=== PATIENT | male | born 1980 | race African-American/Black ===

== ENCOUNTER 2020-11-17 10:07 | Inpatient (IN) | payer OTHER ==
[2020-11-17 10:28] VITALS: BMI 23.2
[2020-11-17] MEDS ORDERED: ACETAMINOPHEN 325 MG TABLET (FP) PO PRN (14:05)
[2020-11-17] MEDS ORDERED: METHOCARBAMOL 500 MG TABLET PO PRN (14:05)
[2020-11-17] MEDS ORDERED: chlordiazePOXIDE HCL 25 MG CAPSULE PO PRN (14:05)
[2020-11-17] MEDS ORDERED: MENTHOL/PHENOL 1 EACH UD MM PRN (14:05)
[2020-11-17] MEDS ORDERED: MAG HYDROX/AL HYDROX/SIMETH 30 ML UNIT-DOSE CUP PO PRN (14:05)
[2020-11-17] MEDS ORDERED: MAGNESIUM CITRATE 300 ML BOTTLE PO PRN (14:05)
[2020-11-17] MEDS ORDERED: BISMUTH SUBSALICYLATE 524 MG/30 ML UD PO PRN (14:05)
[2020-11-17] MEDS ORDERED: IBUPROFEN 400 MG TABLET (FP) PO PRN (14:05)
[2020-11-17] MEDS ORDERED: ONDANSETRON *ODT* 4 MG TABLET SL PRN (14:05)
[2020-11-17] MEDS ORDERED: MAGNESIUM HYDROX 2400MG/30ML ORAL SUSPENSION 30 ML CUP PO PRN (14:05)
[2020-11-17] MEDS: chlordiazePOXIDE HCL 25 MG CAPSULE PO SCH ×2 (18:45→22:18)
[2020-11-17] MEDS: hydrOXYzine PAMOATE 25 MG CAPSULE (FP) PO SCH ×2 (18:47→22:18)
[2020-11-17] MEDS: THIAMINE HCL 100 MG TABLET (FP) PO SCH (22:18)
[2020-11-17] MEDS: MELATONIN 5 MG TABLETS PO SCH (22:18)
[2020-11-18] MEDS: hydrOXYzine PAMOATE 25 MG CAPSULE (FP) PO SCH ×5 (05:44→23:30)
[2020-11-18] MEDS: chlordiazePOXIDE HCL 25 MG CAPSULE PO SCH ×4 (05:45→23:21)
[2020-11-18] MEDS ORDERED: PRENATAL VITAMINS W/ FOLIC ACID TABLET (FP) PO SCH (10:00)
[2020-11-18] MEDS: ACETAMINOPHEN 325 MG TABLET (FP) PO PRN ×2 (10:32→17:56)
[2020-11-18 12:12] LABS: POTASSIUM 3.8 mmol/L (3.5-5.1)
[2020-11-18 12:14] LABS: HEMATOCRIT 44.3 % (35.4-49); HEMOGLOBIN 14.4 GM/dL (11.7-16.9); MCH 27.2 pg (25.7-33.7); MCHC 32.5 g/dl (32.0-35.9); MEAN CELL VOLUME 83.8 fl (80-96); MEAN PLT VOLUME 8.3 fl (7.5-11.1); PLATELET COUNT 297 K/MM3 (134-434); RBC 5.28 M/mm3 (4.00-5.60); RDW 13.9 % (11.9-15.9); WHITE BLOOD COUNT 6.4 K/mm3 (4.0-10.0)
[2020-11-18 12:16] LABS: CALCIUM 8.6 mg/dL (8.5-10.1)
[2020-11-18 12:17] LABS: ALBUMIN 3.6 g/dl (3.4-5.0); BLOOD UREA NITROGEN 10.6 mg/dL (7-18)
[2020-11-18 12:20] LABS: CREATININE 0.9 mg/dL (0.55-1.3)
[2020-11-18 12:21] LABS: BILIRUBIN,TOTAL 0.4 mg/dL (0.2-1); TOT PROT 6.2 g/dl (6.4-8.2)
[2020-11-18] MEDS: THIAMINE HCL 100 MG TABLET (FP) PO SCH (23:23)
[2020-11-18] MEDS: MELATONIN 5 MG TABLETS PO SCH (23:24)
[2020-11-19] MEDS ORDERED: chlordiazePOXIDE HCL 25 MG CAPSULE PO SCH (05:00)
[2020-11-19] MEDS: hydrOXYzine PAMOATE 25 MG CAPSULE (FP) PO SCH (05:52)
[2020-11-19 06:26] VITALS: BP 104/66; PULSE 68; TEMP 98.1
[2020-11-20] MEDS ORDERED: chlordiazePOXIDE HCL 10 MG CAPSULE PO PRN
[2020-11-20] MEDS ORDERED: chlordiazePOXIDE HCL 10 MG CAPSULE PO SCH (05:00)
[2020-11-21] MEDS ORDERED: chlordiazePOXIDE HCL 10 MG CAPSULE PO SCH (05:00)
[2020-11-22] MEDS ORDERED: chlordiazePOXIDE HCL 10 MG CAPSULE PO ONE (05:00)
== END 2020-11-19 08:06 | disposition left against medical advice (07) | DRG 770 ==
LOC: YASAS 10:07 → Y6N 15:07
PROVIDERS: ADMIT Allergy & Immunology; ATTEND Allergy & Immunology
PROC: HZ2ZZZZ Detoxification Services for Substance Abuse Treatment (ICD-10-PCS; principal; 2020-11-17)
DX: F10.230 Alcohol dependence with withdrawal, uncomplicated (principal); F12.20 Cannabis dependence, uncomplicated; Z88.1 Allergy status to other antibiotic agents
CPT/HCPCS: 36415; 80053; 85027; 86780; 87389; C9803; U0003

== ENCOUNTER 2021-04-02 14:08 | Inpatient (IN) | payer OTHER ==
[2021-04-02 15:07] VITALS: BMI 22.6
[2021-04-02] MEDS ORDERED: NICOTINE POLACRILEX 2 MG GUM BUC PRN (17:56)
[2021-04-02] MEDS ORDERED: diazePAM 5 MG TABLET PO PRN (17:56)
[2021-04-02] MEDS ORDERED: ACETAMINOPHEN 325 MG TABLET (FP) PO PRN ×2 (17:56)
[2021-04-02] MEDS ORDERED: MAGNESIUM HYDROX 2400MG/30ML ORAL SUSPENSION 30 ML CUP PO PRN (17:56)
[2021-04-02] MEDS ORDERED: BISMUTH SUBSALICYLATE 524 MG/30 ML PO PRN (17:56)
[2021-04-02] MEDS ORDERED: MENTHOL/PHENOL 1 EACH UD MM PRN (17:56)
[2021-04-02] MEDS ORDERED: ONDANSETRON *ODT* 4 MG TABLET SL PRN (17:56)
[2021-04-02] MEDS ORDERED: MAG HYDROX/AL HYDROX/SIMETH 30 ML UNIT-DOSE CUP PO PRN (17:56)
[2021-04-02] MEDS ORDERED: MAGNESIUM CITRATE 300 ML BOTTLE PO PRN (17:56)
[2021-04-02] MEDS ORDERED: METHOCARBAMOL 500 MG TABLET PO PRN (17:56)
[2021-04-02] MEDS ORDERED: IBUPROFEN 400 MG TABLET (FP) PO PRN (17:56)
[2021-04-02] MEDS ORDERED: ALBUTEROL SO4 HFA INHALER IH PRN (17:59)
[2021-04-02] MEDS: hydrOXYzine PAMOATE 25 MG CAPSULE (FP) PO SCH ×2 (18:36→22:54)
[2021-04-02] MEDS: MELATONIN 5 MG TABLETS PO SCH (22:54)
[2021-04-02] MEDS: THIAMINE HCL 100 MG TABLET (FP) PO SCH (22:54)
[2021-04-02] MEDS: diazePAM 5 MG TABLET PO SCH (22:56)
[2021-04-03] MEDS: hydrOXYzine PAMOATE 25 MG CAPSULE (FP) PO SCH ×5 (06:23→22:32)
[2021-04-03] MEDS: diazePAM 5 MG TABLET PO SCH ×4 (06:24→22:32)
[2021-04-03 09:59] LABS: HEMATOCRIT 42.1 % (35.4-49); HEMOGLOBIN 14.2 GM/dL (11.7-16.9); MCH 27.7 pg (25.7-33.7); MCHC 33.8 g/dl (32.0-35.9); MEAN CELL VOLUME 82.1 fl (80-96); PLATELET COUNT 329 K/MM3 (134-434); RBC 5.12 M/mm3 (4.00-5.60); WHITE BLOOD COUNT 8.8 K/mm3 (4.0-10.0)
[2021-04-03 10:14] LABS: CALCIUM 9.4 mg/dL (8.5-10.1)
[2021-04-03 10:15] LABS: ALBUMIN 4.3 g/dl (3.4-5.0)
[2021-04-03 10:17] LABS: CREATININE 0.9 mg/dL (0.55-1.3)
[2021-04-03] MEDS: PRENATAL VITAMINS W/ FOLIC ACID TABLET (FP) PO SCH (10:17)
[2021-04-03 10:19] LABS: BILIRUBIN,TOTAL 0.9 mg/dL (0.2-1); TOT PROT 7.2 g/dl (6.4-8.2)
[2021-04-03 10:27] LABS: BLOOD UREA NITROGEN 11.3 mg/dL (7-18)
[2021-04-03] MEDS: THIAMINE HCL 100 MG TABLET (FP) PO SCH (22:32)
[2021-04-03] MEDS: MELATONIN 5 MG TABLETS PO SCH (22:33)
[2021-04-04] MEDS: diazePAM 5 MG TABLET PO SCH ×2 (06:10→14:11)
[2021-04-04] MEDS: hydrOXYzine PAMOATE 25 MG CAPSULE (FP) PO SCH ×3 (06:10→14:20)
[2021-04-04] MEDS ORDERED: COLLOIDAL OATMEAL 1 BAR EACH TP PRN (08:23)
[2021-04-04] MEDS: PRENATAL VITAMINS W/ FOLIC ACID TABLET (FP) PO SCH (10:46)
[2021-04-04 13:17] VITALS: BP 115/66; PULSE 83; TEMP 96.9
[2021-04-05] MEDS ORDERED: diazePAM 5 MG TABLET PO SCH (06:00)
[2021-04-06] MEDS ORDERED: diazePAM 5 MG TABLET PO ONE (06:00)
== END 2021-04-04 17:03 | disposition left against medical advice (07) | DRG 770 ==
LOC: YASAS 14:08 → Y6N 16:08
PROVIDERS: ADMIT Allergy & Immunology; ATTEND Allergy & Immunology
PROC: HZ2ZZZZ Detoxification Services for Substance Abuse Treatment (ICD-10-PCS; principal; 2021-04-02)
DX: F10.230 Alcohol dependence with withdrawal, uncomplicated (principal); F12.20 Cannabis dependence, uncomplicated; F17.210 Nicotine dependence, cigarettes, uncomplicated; J45.909 Unspecified asthma, uncomplicated; K21.9 Gastro-esophageal reflux disease without esophagitis; Z88.1 Allergy status to other antibiotic agents
CPT/HCPCS: 36415; 80053; 85027; 86780; C9803; U0003; U0005

== ENCOUNTER 2023-02-15 13:24 | Inpatient (IN) | payer OTHER ==
[2023-02-15 14:24] VITALS: BMI 22.1
[2023-02-15] MEDS ORDERED: ALBUTEROL SO4 HFA INHALER IH PRN (17:15)
[2023-02-15] MEDS ORDERED: POLYETHYLENE GLYCOL (HEALTHYLAX) 3350 17 GM PACKET PO PRN (17:30)
[2023-02-15] MEDS ORDERED: MAG HYDROX/AL HYDROX/SIMETH 30 ML UNIT-DOSE CUP PO PRN (17:30)
[2023-02-15] MEDS ORDERED: P-EPHED 60MG/TRIPROLIDI 2.5MG TABLET PO PRN (17:30)
[2023-02-15] MEDS ORDERED: NICOTINE POLACRILEX 2 MG GUM BUC PRN (17:30)
[2023-02-15] MEDS ORDERED: ONDANSETRON *ODT* 4 MG TABLET SL PRN (17:30)
[2023-02-15] MEDS ORDERED: BENZONATATE 200 MG CAPSULE PO PRN (17:30)
[2023-02-15] MEDS ORDERED: METHOCARBAMOL 500 MG TABLET PO PRN (17:30)
[2023-02-15] MEDS ORDERED: guaiFENesin 600 MG TABLET.ER (FP) PO PRN (17:30)
[2023-02-15] MEDS ORDERED: IBUPROFEN 600 MG TABLET (FP) PO PRN (17:30)
[2023-02-15] MEDS ORDERED: MAGNESIUM HYDROX 2400MG/30ML ORAL SUSPENSION 30 ML CUP PO PRN (17:30)
[2023-02-15] MEDS ORDERED: BENZOCAINE/MENTHOL (CHLORASEPTIC ) LOZENGE MM PRN (17:30)
[2023-02-15] MEDS ORDERED: LOPERAMIDE HCL 2 MG CAPSULE PO PRN (17:30)
[2023-02-15] MEDS ORDERED: hydrOXYzine PAMOATE 25 MG CAPSULE (FP) PO PRN (17:30)
[2023-02-15] MEDS ORDERED: IBUPROFEN 400 MG TABLET (FP) PO PRN (17:30)
[2023-02-15] MEDS ORDERED: DICYCLOMINE HCL 10 MG CAPSULE PO PRN (17:30)
[2023-02-15] MEDS ORDERED: ACETAMINOPHEN 325 MG TABLET (FP) PO PRN (17:30)
[2023-02-15] MEDS ORDERED: BISMUTH SUBSALICYLATE 524 MG/30 ML PO PRN (17:30)
[2023-02-15] MEDS ORDERED: MELATONIN 5 MG TABLETS PO PRN (17:30)
[2023-02-15] MEDS ORDERED: diazePAM 5 MG TABLET PO PRN (17:32)
[2023-02-15] MEDS ORDERED: THIAMINE HCL 100 MG TABLET (FP) PO SCH (22:00)
[2023-02-15] MEDS: diazePAM 5 MG TABLET PO SCH (22:24)
[2023-02-16] MEDS: diazePAM 5 MG TABLET PO SCH ×2 (05:35→10:14)
[2023-02-16 09:00] VITALS: RESP 16
[2023-02-16] MEDS ORDERED: PRENATAL VITAMINS W/ FOLIC ACID TABLET (FP) PO SCH (10:00)
[2023-02-16 11:46] LABS: CALCIUM 8.9 mg/dL (8.5-10.1)
[2023-02-16 11:47] LABS: ALBUMIN 3.8 g/dl (3.4-5.0); BLOOD UREA NITROGEN 9.8 mg/dL (7-18)
[2023-02-16 11:49] LABS: HEMATOCRIT 44.6 % (35.4-49); HEMOGLOBIN 15.1 GM/dL (11.7-16.9); MCHC 33.9 g/dl (32.0-35.9); MEAN CELL VOLUME 82.6 fl (80-96); MEAN PLT VOLUME 7.9 fl (7.5-11.1); PLATELET COUNT 336 10^3/uL (134-434); RDW 14.7 % (11.9-15.9); WHITE BLOOD COUNT 9.4 K/mm3 (4.0-10.0)
[2023-02-16 11:50] LABS: CREATININE 0.9 mg/dL (0.55-1.3)
[2023-02-16 11:51] LABS: BILIRUBIN,TOTAL 1.4 mg/dL (0.2-1)
[2023-02-16 11:52] LABS: TOT PROT 6.9 g/dl (6.4-8.2)
[2023-02-16 12:49] VITALS: BP 139/79; PULSE 83; TEMP 98
[2023-02-17] MEDS ORDERED: diazePAM 5 MG TABLET PO SCH (06:00)
[2023-02-18] MEDS ORDERED: diazePAM 5 MG TABLET PO SCH (06:00)
[2023-02-19] MEDS ORDERED: diazePAM 5 MG TABLET PO ONE (06:00)
== END 2023-02-16 14:13 | disposition left against medical advice (07) | DRG 770 ==
LOC: YASAS 13:24 → Y3N 17:52
PROVIDERS: ADMIT Allergy & Immunology; ATTEND Surgery
PROC: HZ2ZZZZ Detoxification Services for Substance Abuse Treatment (ICD-10-PCS; principal; 2023-02-15)
DX: F10.230 Alcohol dependence with withdrawal, uncomplicated (principal); F12.20 Cannabis dependence, uncomplicated; F17.210 Nicotine dependence, cigarettes, uncomplicated; J45.909 Unspecified asthma, uncomplicated; Z87.19 Personal history of other diseases of the digestive system; Z88.1 Allergy status to other antibiotic agents
CPT/HCPCS: 36415; 80053; 85027; 86780; C9803-CS; U0003; U0005

== ENCOUNTER 2024-09-23 12:15 | Inpatient (IN) | payer OTHER ==
[2024-09-23 13:10] VITALS: BMI 22.2
[2024-09-23] MEDS ORDERED: POLYETHYLENE GLYCOL (HEALTHYLAX) 3350 17 GM PACKET PO PRN (15:13)
[2024-09-23] MEDS ORDERED: BENZOCAINE/MENTHOL (CHLORASEPTIC ) LOZENGE MM PRN (15:13)
[2024-09-23] MEDS ORDERED: guaiFENesin 600 MG TABLET.ER (FP) PO PRN (15:13)
[2024-09-23] MEDS ORDERED: BISMUTH SUBSALICYLATE 524 MG/30 ML PO PRN (15:13)
[2024-09-23] MEDS ORDERED: DICYCLOMINE HCL 10 MG CAPSULE PO PRN (15:13)
[2024-09-23] MEDS ORDERED: MAG HYDROX/AL HYDROX/SIMETH 30 ML UNIT-DOSE CUP PO PRN (15:13)
[2024-09-23] MEDS ORDERED: LOPERAMIDE HCL 2 MG CAPSULE PO PRN (15:13)
[2024-09-23] MEDS ORDERED: NALOXONE (NARCAN) HCL 4 MG/0.1 ML SPRAY NS PRN (15:13)
[2024-09-23] MEDS ORDERED: ACETAMINOPHEN 325 MG TABLET (FP) PO PRN (15:13)
[2024-09-23] MEDS ORDERED: chlordiazePOXIDE HCL 25 MG CAPSULE PO PRN (15:13)
[2024-09-23] MEDS ORDERED: hydrOXYzine PAMOATE 25 MG CAPSULE (FP) PO PRN (15:13)
[2024-09-23] MEDS ORDERED: BENZONATATE 200 MG CAPSULE PO PRN (15:13)
[2024-09-23] MEDS ORDERED: ALBUTEROL SO4 HFA INHALER IH PRN (15:19)
[2024-09-23] MEDS: IBUPROFEN 400 MG TABLET (FP) PO PRN (17:26)
[2024-09-23] MEDS: chlordiazePOXIDE HCL 25 MG CAPSULE PO SCH (17:27)
[2024-09-23] MEDS: ONDANSETRON *ODT* 4 MG TABLET SL PRN (17:29)
[2024-09-23] MEDS: THIAMINE 100 MG TABLET PO SCH (22:26)
[2024-09-23] MEDS: MELATONIN 5 MG TABLETS PO SCH (22:26)
[2024-09-23] MEDS: METHOCARBAMOL 500 MG TABLET PO PRN (22:27)
[2024-09-24] MEDS: PRENATAL VITAMINS W/ FOLIC ACID TABLET (FP) PO SCH (10:49)
[2024-09-24 13:04] LABS: CHLORIDE 104 mmol/L (98-107); POTASSIUM 3.9 mmol/L (3.5-5.1); SODIUM 140 mmol/L (136-145)
[2024-09-24 13:09] LABS: HEMATOCRIT 47.7 % (35.4-49); MCH 28.3 pg (25.7-33.7); MCHC 33.6 g/dl (32.0-35.9); MEAN CELL VOLUME 84.2 fl (80-96); MEAN PLT VOLUME 7.7 fl (7.5-11.1); PLATELET COUNT 395 10^3/uL (134-434); RBC 5.66 M/mm3 (4.00-5.60); RDW 13.1 % (11.9-15.9); WHITE BLOOD COUNT 7.6 K/mm3 (4.0-10.0)
[2024-09-24 13:16] LABS: CALCIUM 9.8 mg/dL (8.5-10.1)
[2024-09-24 13:17] LABS: ALBUMIN 4.3 g/dl (3.4-5.0); ANION GAP 6 mmol/L (4-13); CO2 30 mmol/L (21-32)
[2024-09-24 13:18] LABS: GLUCOSE,RANDOM 82 mg/dL (74-106)
[2024-09-24 13:19] LABS: BLOOD UREA NITROGEN 10.8 mg/dL (7-18)
[2024-09-24 13:20] LABS: CREATININE 1.1 mg/dL (0.55-1.3); SGOT/AST 27 U/L (15-37)
[2024-09-24 13:21] LABS: BILIRUBIN,TOTAL 3.1 mg/dL (0.2-1); TOT PROT 7.5 g/dl (6.4-8.2)
[2024-09-24 13:22] LABS: SGPT/ALT 25 U/L (13-61)
[2024-09-24 13:23] LABS: ALK PHOS 70 U/L (45-117)
[2024-09-24 14:02] LABS: HIV INTERPRETATION NEGATIVE (NEGATIVE)
[2024-09-25] MEDS: chlordiazePOXIDE HCL 25 MG CAPSULE PO SCH (05:28)
[2024-09-25 06:26] VITALS: RESP 16
[2024-09-25 09:51] VITALS: BP 122/64; PULSE 65; TEMP 97.7
[2024-09-25] MEDS: MAGNESIUM HYDROX 2400MG/30ML ORAL SUSPENSION 30 ML CUP PO PRN (10:19)
[2024-09-25] MEDS: IBUPROFEN 600 MG TABLET (FP) PO PRN (10:20)
[2024-09-25 11:34] LABS: BILIRUBIN,DIRECT 0.2 mg/dL (0.0-0.2)
[2024-09-25 11:37] LABS: BILIRUBIN,TOTAL 1.5 mg/dL (0.2-1)
[2024-09-25] MEDS: NALOXONE (NYS OPIOID OVERDOSE PROGRAM) 4 MG/0.1 ML SPRAY NS SCH (11:38)
[2024-09-26] MEDS ORDERED: chlordiazePOXIDE HCL 10 MG CAPSULE PO PRN
[2024-09-26] MEDS ORDERED: chlordiazePOXIDE HCL 10 MG CAPSULE PO SCH (05:00)
[2024-09-27] MEDS ORDERED: chlordiazePOXIDE HCL 10 MG CAPSULE PO SCH (05:00)
[2024-09-28] MEDS ORDERED: chlordiazePOXIDE HCL 10 MG CAPSULE PO ONE (05:00)
== END 2024-09-25 11:20 | disposition left against medical advice (07) | DRG 775 ==
LOC: YASAS 12:15 → Y6N 15:26
PROVIDERS: ADMIT Surgery; ATTEND Surgery
PROC: HZ2ZZZZ Detoxification Services for Substance Abuse Treatment (ICD-10-PCS; principal; 2024-09-23)
DX: F10.230 Alcohol dependence with withdrawal, uncomplicated (principal); F12.20 Cannabis dependence, uncomplicated; F17.210 Nicotine dependence, cigarettes, uncomplicated; F41.9 Anxiety disorder, unspecified; G47.00 Insomnia, unspecified; J45.20 Mild intermittent asthma, uncomplicated
CPT/HCPCS: 36415; 80053; 80305; 80307; 82247; 82248; 85027; 86780; 87389; 93005; 93010; Q0162